=== PATIENT | male | born 1985 | race Caucasian/White ===

== ENCOUNTER 2019-09-17 07:13 | Outpatient (CLI) | payer OTHER ==
[~2019-09-17] VITALS: Ht 180.3 cm; Wt 90.7 kg
[2019-09-17] MEDS ORDERED: albuterol 2.5 MG/3 ML nebule NEB PRN (07:45)
== END 2019-09-17 23:59 | disposition home or self-care (01) ==
LOC: RT 07:13
PROVIDERS: ATTEND Orthopaedic Surgery
DX: J45.998 Other asthma (principal)
CPT/HCPCS: 71046; 94060; 94760